=== PATIENT | male | born 1985 | race Hispanic/Latino ===

== ENCOUNTER 2019-10-23 11:56 | Emergency (ER) | payer OTHER ==
[~2019-10-23] VITALS: Ht 180.3 cm; Wt 90.7 kg
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
[2019-10-23] MEDS ORDERED: LASIX20 MG PO (16:58)
[2019-10-23] MEDS ORDERED: K-TAB10 MEQ PO (16:58)
[2019-10-23] MEDS ORDERED: PRILOSEC OTC20 MG PO (16:59)
--- NOTE | 2019-10-24 01:18 | EKG ---
[facility] [address] [place] [address] Signed Sinus tachycardia Possible Left atrial enlargement Rightward axis Borderline ECG No previous ECGs available Confirmed by PATRICK RODRIGUEZ MD ([id number] on 10/24/2019 1:18:09 AM Electronically Signed By: PATRICK RODRIGUEZ MD 10/24/19 0118 PATIENT NAME: YOLIE GAMBLE Electrocardiogram DATE OF : 81 PHYSICIAN: PATRICK RODRIGUEZ MD REPORT #: [id number] REPORT IS CONFIDENTIAL AND NOT TO BE RELEASED WITHOUT AUTHORIZATION
== END 2019-10-23 17:38 | disposition home or self-care (01) ==
LOC: ED 11:56
DX: I50.9 Heart failure, unspecified (principal); K21.9 Gastro-esophageal reflux disease without esophagitis; I42.0 Dilated cardiomyopathy; F15.90 Other stimulant use, unspecified, uncomplicated; F17.200 Nicotine dependence, unspecified, uncomplicated; Z88.1 Allergy status to other antibiotic agents; Z88.8 Allergy status to other drugs, medicaments and biological substances; Z88.6 Allergy status to analgesic agent
CPT/HCPCS: 71045; 71260; 80053; 81001; 83605; 83690; 83735; 83880; 84484; 85025; 85379; 85610; 85651; 85730; 86140; 93005; 93010; 99285-25; J1940; J2270; J7030; Q9967